=== PATIENT | female | born 1990 | race Caucasian/White ===

== ENCOUNTER 2018-03-17 18:20 | Emergency (ER) | payer BC, OTHER ==
[2018-03-17] MEDS ORDERED: Ketorolac Tromethamine 60 MG/2 ML VIAL ONE (18:51)
== END 2018-03-17 18:57 | disposition home or self-care (01) ==
LOC: BURERS 18:20
DX: G44.209 Tension-type headache, unspecified, not intractable (principal); F41.9 Anxiety disorder, unspecified
CPT/HCPCS: 99283; J1885